=== PATIENT | male | born 1955 | race Caucasian/White ===

== ENCOUNTER 2023-09-26 11:20 | Emergency (ER) | payer SELFPAY ==
[~2023-09-26] VITALS: Ht 187.9 cm; Wt 145.1 kg
[2023-09-26 11:50] LABS: BASO % 0.9 % (0.0-1.0); EOS # 0.1 10*3/uL (0.0-0.4); EOS % 3.1 % (1.0-4.0); HEMATOCRIT 43.1 % (42.0-52.0); LYMPH # 1.1 10*3/uL (1.3-4.4); LYMPH % 23.7 % (27.0-41.0); MEAN CELL VOLUME 94.5 fl (80.0-94.0); MEAN CORPUSCULAR HGB 32.2 pg (27.0-31.0); MEAN CORPUSCULAR HGB CONC 34.1 g/dl (33.0-37.0); MEAN PLATELET VOLUME 9.2 fl (9.6-12.3); MONO # 0.5 10*3/uL (0.1-1.0); MONO % 11.9 % (3.0-9.0); NEUT # 2.7 10*3/uL (2.3-7.9); NEUT % 59.1 % (47.0-73.0); PLATELET COUNT AUTOMATED 174 10*3/uL (130-400); RED BLOOD COUNT 4.56 10*6/uL (4.50-5.90); RED CELL DISTRI WIDTH 13.5 % (0-14.5); WHITE BLOOD COUNT 4.5 10*3/uL (4.8-10.8)
[2023-09-26 12:03] LABS: ACT PARTIAL THROMBO TIME 23.2 SECONDS (20.0-32.1)
[2023-09-26 12:11] LABS: ALKALINE PHOSPHATASE 69 U/L (46-116); BUN 19 mg/dl (9-23); CHLORIDE 107 mmol/L (98-107); LIPASE 36 U/L (12-53); POTASSIUM 3.9 mmol/L (3.4-5.1); SGPT/ALT 33 U/L (5-49); TOTAL PROTEIN 7.2 gm/dL (6.0-8.0)
[2023-09-26 12:13] LABS: ETHYL ALCOHOL < 3.0 mg/dl (<3)
[2023-09-26 12:41] LABS: BILIRUBIN Negative (Negative); BLOOD Negative (Negative); CLARITY Clear (Clear); COLOR Yellow (Yellow); GLUCOSE Negative (Negative); KETONE Negative (Negative); LEUKO ESTERASE Negative (Negative); NITRITE Negative (Negative); PH 7.5 (4.5-8.0); UROBILINOGEN 0.2 E.U./dl (0.0-1.0)
[2023-09-26 12:47] LABS: URINE AMPHETAMINES Negative (1000ng/ml); URINE BARBITURATES Negative (200ng/ml); URINE BENZODIAZEPINES Negative (200ng/ml); URINE CANNABINOIDS (THC) Negative (50ng/ml); URINE COCAINE Negative (300ng/ml); URINE METHADONE Negative (300ng/ml); URINE OPIATES Negative (300ng/ml); URINE PHENCYCLIDINE Negative (25ng/ml)
[2023-09-26 12:56] LABS: RBC 0-2 rbc/hpf (0-2); WBC 0-2 wbc/hpf (0-5)
[2023-09-26] MEDS ORDERED: VIBRAMYCIN100 MG PO (14:11)
== END 2023-09-26 14:16 | disposition home or self-care (01) ==
LOC: ED 11:20
PROVIDERS: Internal Medicine
DX: I16.0 Hypertensive urgency (principal); J18.9 Pneumonia, unspecified organism; R11.2 Nausea with vomiting, unspecified; Z88.1 Allergy status to other antibiotic agents; Z88.2 Allergy status to sulfonamides; Z95.0 Presence of cardiac pacemaker